=== PATIENT | female | born 1995 | race American Indian/Alaskan Native ===

== ENCOUNTER 2017-05-12 12:36 | Emergency (ER) | payer OTHER, MEDICAID ==
[2017-05-12 16:44] VITALS: BP 104/76
[2017-05-12] MEDS ORDERED: ULTRAM PO ONE (16:48)
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
== END 2017-05-12 17:13 | disposition home or self-care (01) ==
LOC: ED 12:36
DX: M54.2 Cervicalgia (principal); M25.512 Pain in left shoulder; M25.511 Pain in right shoulder; F17.200 Nicotine dependence, unspecified, uncomplicated
CPT/HCPCS: 99283